=== PATIENT | male | born 1955 | race Caucasian/White ===

== ENCOUNTER 2016-07-19 19:43 | Emergency (ER) | payer OTHER ==
--- NOTE | 2016-07-19 20:18 | ED CLINICAL REPORT ---
Clinical Report - Physicians/Mid Levels Located Within [facility] [address] [place] [address] 07/19/2016 19:45 Patient: J LUIS VALIENTE Time Seen: 19:47. Arrived- By private vehicle. Historian- patient. HISTORY OF PRESENT ILLNESS Chief Complaint: DOG BITE. Location of injuries- right thigh and left hip. The injury occurred just prior to arrival. The animal reportedly appeared well. Occurred on a street. This was a "provoked" attack. (patient with contacted by a police dog while in the process of being arrested.). No skin rash, dizziness, itching, fainting episodes or difficulty breathing. He has not had swelling, drainage or trouble swallowing. REVIEW OF SYSTEMS No swelling, numbness, headache, difficulty breathing or weakness. No tingling, chest pain, nausea, fever or joint pain. No enlarged lymph nodes, abdominal pain, vomiting or chills. All systems otherwise negative, except as recorded above. PAST HISTORY Problems: no known problems. Additional Surgeries: no known surgeries. Medications: Aspirin Oral (Tablet 81 mg). Allergies: No Known Drug Allergy. SOCIAL HISTORY Smoker- current status unknown. Alcohol use. History of drug use: marijuana. ADDITIONAL NOTES The nursing notes have been reviewed. PHYSICAL EXAM Vital Signs: 07/19/2016 19:52 BP: 194/118. HR: 119. RR: 22. O2 saturation: 97%. Temp: 99.4 F. Have been reviewed. Appearance: Alert. No acute distress. (Patient is grossly oriented.). Head: Head normal on inspection. Eyes: Eyes normal inspection. ENT: Nose normal on inspection. Neck: No decreased ROM in the neck. Respiratory: No respiratory distress. Skin: Skin warm and dry. Normal skin color. Normal skin turgor. (Patient has multiple superficial abrasions over his anterior and lateral right thigh. He has 1 small, superficial abrasion over his left hip. No foreign bodies are noted in the wounds.). Extremities: Normal inspection. Pelvis stable. Extremities atraumatic. No lower extremity edema. Neuro: (Grossly intact.). LABS, X-RAYS, AND EKG Pulse Oximetry: 07/19/2016 19:52 O2 saturation: 97%. (FIO2 - room air). Interpretation: normal. PROGRESS AND PROCEDURES Course of Care: Patient cleaned and dressed in the emergency department. I did not find evidence of a serious injury. Patient was cleared to book. Patient counseled in person regarding the patient's stable condition, diagnosis and need for follow-up. Concerns were addressed. Old medical records reviewed. Disposition: Discharged. Condition: stable. CLINICAL IMPRESSION Superficial dog bite to the right thigh and left hip. INSTRUCTIONS (CLEAR TO BOOK.). Warnings: GENERAL WARNINGS: Return or contact your physician immediately if your condition worsens or changes unexpectedly, if not improving as expected, or if other problems arise. Your Current Medications: CONTINUE TAKING THE FOLLOWING MEDICATIONS: Aspirin Oral : Tablet 81 mg. Follow-up: Follow up with your doctor as needed. Understanding of the discharge instructions verbalized by patient. (Electronically signed by Anjelica Huynh MD 07/19/2016 21:33)
--- NOTE | 2016-07-19 20:18 | ED CLINICAL REPORT ---
Clinical Report - Physicians/Mid Levels [facility] [address] [place] [address] 07/19/2016 19:45 Patient: J LUIS VALIENTE Time Seen: 19:47. Arrived- By private vehicle. Historian- patient. HISTORY OF PRESENT ILLNESS Chief Complaint: DOG BITE. Location of injuries- right thigh and left hip. The injury occurred just prior to arrival. The animal reportedly appeared well. Occurred on a street. This was a "provoked" attack. (patient with contacted by a police dog while in the process of being arrested.). No skin rash, dizziness, itching, fainting episodes or difficulty breathing. He has not had swelling, drainage or trouble swallowing. REVIEW OF SYSTEMS No swelling, numbness, headache, difficulty breathing or weakness. No tingling, chest pain, nausea, fever or joint pain. No enlarged lymph nodes, abdominal pain, vomiting or chills. All systems otherwise negative, except as recorded above. PAST HISTORY Problems: no known problems. Additional Surgeries: no known surgeries. Medications: Aspirin Oral (Tablet 81 mg). Allergies: No Known Drug Allergy. SOCIAL HISTORY Smoker- current status unknown. Alcohol use. History of drug use: marijuana. ADDITIONAL NOTES The nursing notes have been reviewed. PHYSICAL EXAM Vital Signs: 07/19/2016 19:52 BP: 194/118. HR: 119. RR: 22. O2 saturation: 97%. Temp: 99.4 F. Have been reviewed. Appearance: Alert. No acute distress. (Patient is grossly oriented.). Head: Head normal on inspection. Eyes: Eyes normal inspection. ENT: Nose normal on inspection. Neck: No decreased ROM in the neck. Respiratory: No respiratory distress. Skin: Skin warm and dry. Normal skin color. Normal skin turgor. (Patient has multiple superficial abrasions over his anterior and lateral right thigh. He has 1 small, superficial abrasion over his left hip. No foreign bodies are noted in the wounds.). Extremities: Normal inspection. Pelvis stable. Extremities atraumatic. No lower extremity edema. Neuro: (Grossly intact.). LABS, X-RAYS, AND EKG Pulse Oximetry: 07/19/2016 19:52 O2 saturation: 97%. (FIO2 - room air). Interpretation: normal. PROGRESS AND PROCEDURES Course of Care: Patient cleaned and dressed in the emergency department. I did not find evidence of a serious injury. Patient was cleared to book. Patient counseled in person regarding the patient's stable condition, diagnosis and need for follow-up. Concerns were addressed. Old medical records reviewed. Disposition: Discharged. Condition: stable. CLINICAL IMPRESSION Superficial dog bite to the right thigh and left hip. INSTRUCTIONS (CLEAR TO BOOK.). Warnings: GENERAL WARNINGS: Return or contact your physician immediately if your condition worsens or changes unexpectedly, if not improving as expected, or if other problems arise. Your Current Medications: CONTINUE TAKING THE FOLLOWING MEDICATIONS: Aspirin Oral : Tablet 81 mg. Follow-up: Follow up with your doctor as needed. Understanding of the discharge instructions verbalized by patient. (Electronically signed by Anjelica Huynh MD 07/19/2016 21:33)
--- NOTE | 2016-07-19 20:18 | ED NURSING NOTES ---
Clinical Report - Nurses [facility] [address] [place] [address] 07/19/2016 19:45 Patient: J LUIS VALIENTE TRIAGE Acuity: LEVEL 3. Chief Complaint: DOG BITE. Alert. No acute distress. SEPSIS SCREEN: Sepsis Screen. Negative (no infection suspected/documented). --19:56 Tracey Celaya R.N. 19:52 07/19/16. BP: 194/118. HR: 119. RR: 22. O2 saturation: 97% on room air. Temp: 99.4 F (oral). --19:56 Tracey Celaya R.N. Weight: 50.8 kg stated. Height/Length: 68 inches Per Patient. BMI: 17. --19:54 Tracey Celaya R.N. Medications Aspirin Oral (Tablet 81 mg). --19:53 Tracey Celaya R.N. Medication/allergy information source: the patient. --19:56 Tracey Celaya R.N. Allergies No Known Drug Allergy. --19:53 Tracey Celaya R.N. History Historian: patient. Arrived in police custody and accompanied by police. Location of injuries: right buttock, right hip and right thigh. This occurred just prior to arrival. 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 SOCIAL HX: Current every day heavy tobacco smoker (cigarette)- 1 pack per day. Occasional alcohol use. History of heavy drug use: marijuana. FALL RISK ASSESSMENT: Fall risk assessment completed. No fall risk identified. NUTRITIONAL RISK ASSESSMENT: The nutritional risk assessment revealed no deficiencies. FUNCTIONAL ASSESSMENT: Functional assessment: no impairments noted. LEARNING NEEDS ASSESSMENT: The learning needs assessment revealed no barriers. SKIN INTEGRITY ASSESSMENT: Skin integrity risk assessment completed. No skin integrity risk identified. --19:56 Tracey Celaya R.N. ( Pt was bit by police dog.). --19:56 Tracey Celaya R.N. Assessment GENERAL / NEURO / PSYCH: Alert. Oriented X 4. Appears in no acute distress. [place] Coma Scale: 15- eyes open spontaneously (4); best verbal response- oriented x 4 (5); best motor response- obeys commands (6). Patient appears calm and cooperative. RESPIRATORY: Respirations not labored. CVS: Capillary refill less than 2 seconds. GI / : Abdomen soft and nontender. SKIN: Mucous membranes are pink. Skin is warm and dry. --19:56 Tracey Celaya R.N. Interventions To treatment room. --19:56 Tracey Celaya R.N. PHYSICAL ASSESSMENT Ambulatory to room. GENERAL / NEURO / PSYCH: Alert. Oriented X 4. Appears in no acute distress. HEENT: Pupils equal, round and reactive to light. Head non-tender. RESPIRATORY: Respirations not labored. CVS: Capillary refill less than 2 seconds. GI / : Abdomen soft and nontender. EXTREMITIES: Extremities exhibit normal ROM. Neuro-vascular status intact to the extremity. Right thigh: tenderness, erythema, ecchymosis, laceration with controlled bleeding and multiple puncture wounds. SKIN: Skin is warm and dry. BACK: Right buttock: tenderness, laceration with controlled bleeding and multiple puncture wounds. --19:58 Tracey Celaya R.N. NURSING PROGRESS NOTES 20:00 07/19/16. Two patient identifiers checked. Bed placed in lowest position. Brakes of bed on. Patient ready for evaluation- chart flagged and ED physician notified. At the patient's bedside (police x 3). ( Pt in handcuffs and hobbled.). --20:00 Tracey Celaya R.N. Applied clean bulky dressing consisting of 4x4 gauze, following the application of antibiotic ointment. Secured with kerlix (PATIENT REFUSED DRESSING ON HIS BUTTOCK, ALLOWED DRESSING ON UPPER THIGH.). --20:45 Won Ren, ER Carton Wrapper. DISPOSITION / DISCHARGE Departure time: 20:40 Jul 19 2016. Condition at departure: improved and stable. No learning barriers present. Discharge instructions provided and reviewed with the patient (police). Patient verbalized understanding. Written instructions provided in Vietnamese. The patient was discharged by the physician. He was discharged to police department facility and accompanied by a police escort. He left the Emergency Department ambulatory and via police department vehicle. --22:06 Tracey Celaya R.N. 22:01 07/19/16. BP: 160/93. HR: 92. RR: 20. O2 saturation: 98% on room air. --22:06 Tracey Celaya R.N. Locked/Released at 07/19/2016 22:06 by Tracey Celaya R.N.
--- NOTE | 2016-07-19 20:18 | ED NURSING NOTES ---
Clinical Report - Nurses [facility] [address] [place] [address] 07/19/2016 19:45 Patient: J LUIS VALIENTE TRIAGE Acuity: LEVEL 3. Chief Complaint: DOG BITE. Alert. No acute distress. SEPSIS SCREEN: Sepsis Screen. Negative (no infection suspected/documented). --19:56 Tracey Celaya R.N. 19:52 07/19/16. BP: 194/118. HR: 119. RR: 22. O2 saturation: 97% on room air. Temp: 99.4 F (oral). --19:56 Tracey Celaya R.N. Weight: 50.8 kg stated. Height/Length: 68 inches Per Patient. BMI: 17. --19:54 Tracey Celaya R.N. Medications Aspirin Oral (Tablet 81 mg). --19:53 Tracey Celaya R.N. Medication/allergy information source: the patient. --19:56 Tracey Celaya R.N. Allergies No Known Drug Allergy. --19:53 Tracey Celaya R.N. History Historian: patient. Arrived in police custody and accompanied by police. Location of injuries: right buttock, right hip and right thigh. This occurred just prior to arrival. 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 SOCIAL HX: Current every day heavy tobacco smoker (cigarette)- 1 pack per day. Occasional alcohol use. History of heavy drug use: marijuana. FALL RISK ASSESSMENT: Fall risk assessment completed. No fall risk identified. NUTRITIONAL RISK ASSESSMENT: The nutritional risk assessment revealed no deficiencies. FUNCTIONAL ASSESSMENT: Functional assessment: no impairments noted. LEARNING NEEDS ASSESSMENT: The learning needs assessment revealed no barriers. SKIN INTEGRITY ASSESSMENT: Skin integrity risk assessment completed. No skin integrity risk identified. --19:56 Tracey Celaya R.N. ( Pt was bit by police dog.). --19:56 Tracey Celaya R.N. Assessment GENERAL / NEURO / PSYCH: Alert. Oriented X 4. Appears in no acute distress. [place] Coma Scale: 15- eyes open spontaneously (4); best verbal response- oriented x 4 (5); best motor response- obeys commands (6). Patient appears calm and cooperative. RESPIRATORY: Respirations not labored. CVS: Capillary refill less than 2 seconds. GI / : Abdomen soft and nontender. SKIN: Mucous membranes are pink. Skin is warm and dry. --19:56 Tracey Celaya R.N. Interventions To treatment room. --19:56 Tracey Celaya R.N. PHYSICAL ASSESSMENT Ambulatory to room. GENERAL / NEURO / PSYCH: Alert. Oriented X 4. Appears in no acute distress. HEENT: Pupils equal, round and reactive to light. Head non-tender. RESPIRATORY: Respirations not labored. CVS: Capillary refill less than 2 seconds. GI / : Abdomen soft and nontender. EXTREMITIES: Extremities exhibit normal ROM. Neuro-vascular status intact to the extremity. Right thigh: tenderness, erythema, ecchymosis, laceration with controlled bleeding and multiple puncture wounds. SKIN: Skin is warm and dry. BACK: Right buttock: tenderness, laceration with controlled bleeding and multiple puncture wounds. --19:58 Tracey Celaya R.N. NURSING PROGRESS NOTES 20:00 07/19/16. Two patient identifiers checked. Bed placed in lowest position. Brakes of bed on. Patient ready for evaluation- chart flagged and ED physician notified. At the patient's bedside (police x 3). ( Pt in handcuffs and hobbled.). --20:00 Tracey Celaya R.N. Applied clean bulky dressing consisting of 4x4 gauze, following the application of antibiotic ointment. Secured with kerlix (PATIENT REFUSED DRESSING ON HIS BUTTOCK, ALLOWED DRESSING ON UPPER THIGH.). --20:45 Won Ren, ER Bead Trimmer. DISPOSITION / DISCHARGE Departure time: 20:40 Jul 19 2016. Condition at departure: improved and stable. No learning barriers present. Discharge instructions provided and reviewed with the patient (police). Patient verbalized understanding. Written instructions provided in Greenlandic. The patient was discharged by the physician. He was discharged to police department facility and accompanied by a police escort. He left the Emergency Department ambulatory and via police department vehicle. --22:06 Tracey Celaya R.N. 22:01 07/19/16. BP: 160/93. HR: 92. RR: 20. O2 saturation: 98% on room air. --22:06 Tracey Celaya R.N. Locked/Released at 07/19/2016 22:06 by Tracey Celaya R.N.
--- NOTE | 2016-07-19 22:06 | ED DISCHARGE INSTRUCTIONS ---
Patient: J LUIS VALIENTE General Instructions [facility] VisitID: [id number] [place] [address] 60y, M Registration Date/Time: 07/19/2016 Superficial dog bite to the right thigh and left hip. INSTRUCTIONS (CLEAR TO BOOK.). Warnings: GENERAL WARNINGS: Return or contact your physician immediately if your condition worsens or changes unexpectedly, if not improving as expected, or if other problems arise. Your Current Medications: CONTINUE TAKING THE FOLLOWING MEDICATIONS: Aspirin Oral : Tablet 81 mg. Follow-up: Follow up with your doctor as needed. Understanding of the discharge instructions verbalized by patient. ADDITIONAL INFORMATION Dog Bite If a dog has bitten you and the wound is deep enough to break the skin, an infection may occur. Therefore, you should watch for the warning signs listed below. The doctor may not close the wound completely. This is to allow fluid to drain in the event of an infection. Home Care Watch the wound for signs of infection listed below. In certain types of bites, antibiotics may be prescribed. Begin taking these as soon as possible, as directed until they are all gone. Rabies Prevention If you live in an area where rabies occurs in wild animals, the rabies virus can be passed to cats and dogs. An infected animal can pass the rabies virus to you during a bite. If ahealthy-looking pet dog has bitten you, it should be kept in a secure area for the next 10 days to watch for signs of illness. If the pet pretzel packer wont cooperate with you, contact the [facility] animal control department (or local law enforcement). If the animal becomes ill or dies [id number] days, contact your animal control department at once. The animal must be tested for rabies. If the animal stays healthy for the next 10 days, then there is no danger of rabies in the dog or you. Pets fully vaccinated against rabies (2 shots) are at very low risk for the infection. However, because human rabies is almost always fatal, any biting dog should be kept in confinement for 10 days as an extra precaution. If a stray dog bit you, contact the animal control department. They can provide information on capture, quarantine, and animal rabies testing. If you are unable to locate the animal that bit you in the next 2days, and if rabies exists in your region, you must be evaluated for the rabies vaccine series. Contact your doctor or return here promptly. All animal bites should be reported to the [facility] animal control department. If you were not given a form to fill out, you can report it yourself by calling. Follow Up with your doctor as advised. Most skin wounds heal within 10 days. However, an infection may occur even with proper treatment. Check your woundevery 6 hoursfor 2 days, then at least once a day for the next two days for the signs of infection listed below. Get Prompt Medical Attention if any of the following occur: Signs of infection: Spreading redness Increased pain or swelling Fever of 100.4F (38C) or higher, or as directed by your healthcare provider Colored fluid or pus draining from the wound Headache, confusion, strange behavior, or a seizure (signs of a rabies infection) You have been given the following additional information: Dog Bite (Electronically signed by Anjelica Huynh MD 07/19/2016 21:33)
--- NOTE | 2016-07-19 22:06 | ED DISCHARGE INSTRUCTIONS ---
Patient: J LUIS VALIENTE General Instructions [facility] VisitID: [id number] [place] [address] 60y, M Registration Date/Time: 07/19/2016 Superficial dog bite to the right thigh and left hip. INSTRUCTIONS (CLEAR TO BOOK.). Warnings: GENERAL WARNINGS: Return or contact your physician immediately if your condition worsens or changes unexpectedly, if not improving as expected, or if other problems arise. Your Current Medications: CONTINUE TAKING THE FOLLOWING MEDICATIONS: Aspirin Oral : Tablet 81 mg. Follow-up: Follow up with your doctor as needed. Understanding of the discharge instructions verbalized by patient. ADDITIONAL INFORMATION Dog Bite If a dog has bitten you and the wound is deep enough to break the skin, an infection may occur. Therefore, you should watch for the warning signs listed below. The doctor may not close the wound completely. This is to allow fluid to drain in the event of an infection. Home Care Watch the wound for signs of infection listed below. In certain types of bites, antibiotics may be prescribed. Begin taking these as soon as possible, as directed until they are all gone. Rabies Prevention If you live in an area where rabies occurs in wild animals, the rabies virus can be passed to cats and dogs. An infected animal can pass the rabies virus to you during a bite. If ahealthy-looking pet dog has bitten you, it should be kept in a secure area for the next 10 days to watch for signs of illness. If the pet soil science teacher wont cooperate with you, contact the [facility] animal control department (or local law enforcement). If the animal becomes ill or dies [id number] days, contact your animal control department at once. The animal must be tested for rabies. If the animal stays healthy for the next 10 days, then there is no danger of rabies in the dog or you. Pets fully vaccinated against rabies (2 shots) are at very low risk for the infection. However, because human rabies is almost always fatal, any biting dog should be kept in confinement for 10 days as an extra precaution. If a stray dog bit you, contact the animal control department. They can provide information on capture, quarantine, and animal rabies testing. If you are unable to locate the animal that bit you in the next 2days, and if rabies exists in your region, you must be evaluated for the rabies vaccine series. Contact your doctor or return here promptly. All animal bites should be reported to the [facility] animal control department. If you were not given a form to fill out, you can report it yourself by calling. Follow Up with your doctor as advised. Most skin wounds heal within 10 days. However, an infection may occur even with proper treatment. Check your woundevery 6 hoursfor 2 days, then at least once a day for the next two days for the signs of infection listed below. Get Prompt Medical Attention if any of the following occur: Signs of infection: Spreading redness Increased pain or swelling Fever of 100.4F (38C) or higher, or as directed by your healthcare provider Colored fluid or pus draining from the wound Headache, confusion, strange behavior, or a seizure (signs of a rabies infection) You have been given the following additional information: Dog Bite (Electronically signed by Anjelica Huynh MD 07/19/2016 21:33)
--- NOTE | 2016-07-19 22:07 | ED MED RECONCILIATION SUMMARY ---
Patient: J LUIS VALIENTE Medication Reconciliation Report [facility] VisitID: [id number] [address] [place] [address] 60y, M Registration Date/Time: 07/19/2016 Weight: 50.8 kg Height/Length: 68 in. BMI: 17.0 ALLERGIES: No Known Drug Allergy The patient's Home Medications are listed below: CONTINUE TAKING THE FOLLOWING MEDICATIONS: Aspirin Oral (81 mg) The source(s) of the original Home Medication information: patient The following Medications were given to the patient in the Emergency Department: None. The following Medications were prescribed to the patient: None.
--- NOTE | 2016-07-19 22:07 | ED MED RECONCILIATION SUMMARY ---
Patient: J LUIS VALIENTE Medication Reconciliation Report [facility] VisitID: [id number] [address] [place] [address] 60y, M Registration Date/Time: 07/19/2016 Weight: 50.8 kg Height/Length: 68 in. BMI: 17.0 ALLERGIES: No Known Drug Allergy The patient's Home Medications are listed below: CONTINUE TAKING THE FOLLOWING MEDICATIONS: Aspirin Oral (81 mg) The source(s) of the original Home Medication information: patient The following Medications were given to the patient in the Emergency Department: None. The following Medications were prescribed to the patient: None.
--- NOTE | 2016-07-19 22:07 | ED MAR SUMMARY ---
..... Medication Administration Record [facility] [address] [place], [place] [id number] Patient: J LUIS VALIENTE Visit ID: [id number] 60y, M Weight: 50.8 kg Height/Length: 68 in BMI: 17 ALLERGIES: No Known Drug Allergy
--- NOTE | 2016-07-19 22:07 | ED MAR SUMMARY ---
..... Medication Administration Record [facility] [address] [place], [place] [id number] Patient: J LUIS VALIENTE Visit ID: [id number] 60y, M Weight: 50.8 kg Height/Length: 68 in BMI: 17 ALLERGIES: No Known Drug Allergy
== END 2016-07-19 20:40 ==
LOC: ED SRH 19:43
DX: S70.371A Other superficial bite of right thigh, initial encounter (principal); S70.272A Other superficial bite of hip, left hip, initial encounter; W54.0XXA Bitten by dog, initial encounter; Y93.9 Activity, unspecified; Y92.410 Unspecified street and highway as the place of occurrence of the external cause; Y99.8 Other external cause status; Z79.82 Long term (current) use of aspirin